=== PATIENT | female | born 1960 | race Caucasian/White ===

== ENCOUNTER 2024-01-26 09:31 | Emergency (ER) | payer MEDICARE ==
[~2024-01-26] VITALS: Ht 162.6 cm; Wt 56.8 kg
[2024-01-26] MEDS ORDERED: INFL10VL IV (09:46)
[2024-01-26] MEDS ORDERED: SULF500T56 PO (09:46)
[2024-01-26] MEDS ORDERED: TRAM50TA2 PO (09:46)
[2024-01-26] MEDS: traMADol 50 MG TAB PO ONE (11:01)
[2024-01-26] MEDS ORDERED: LEUC10TA PO (11:04)
[2024-01-26] MEDS ORDERED: ATEN50TA2 PO (11:04)
[2024-01-26] MEDS ORDERED: METH2.5T48 PO (11:04)
[2024-01-26] MEDS ORDERED: SULF500T2 PO (11:04)
[2024-01-26] MEDS ORDERED: HOME MED LIST COMPLETE! XX SCH (11:10)
[2024-01-26] MEDS ORDERED: SHOWER CHAIR XX (11:45)
[2024-01-26 11:49] VITALS: BP 138/82; TEMP 97.3; O2SAT 99
== END 2024-01-26 12:26 | disposition home or self-care (01) ==
LOC: M ED 09:31
DX: S82.832A Other fracture of upper and lower end of left fibula, initial encounter for closed fracture (principal); S92.352A Displaced fracture of fifth metatarsal bone, left foot, initial encounter for closed fracture; W10.8XXA Fall (on) (from) other stairs and steps, initial encounter; I10 Essential (primary) hypertension; Y92.009 Unspecified place in unspecified non-institutional (private) residence as the place of occurrence of the external cause; Y93.89 Activity, other specified; Y99.9 Unspecified external cause status; Z79.899 Other long term (current) drug therapy